=== PATIENT | female | born 1975 | race Caucasian/White ===

== ENCOUNTER → 2017-09-03 06:45 | Outpatient (CLI) | payer OTHER, SELFPAY ==
--- NOTE | 2017-09-03 | DI.MRI.S_ITS ---
PROCEDURE: MR LUMBAR SPINE WO CON INDICATIONS: low back pain TECHNIQUE: Noncontrast sagittal T1 spin echo and T2 fast echo, sagittal STIR, axial T1 and T2 fast spin echo through the lumbar spine. In cases with scoliosis, additional coronal T2 fast spin echo may be performed. COMPARISON: [facility], CR, L-SPINE 2-3 VIEWS, 02/05/2014, 9:51. [facility], , L-SPINE 2-3 VIEWS, 03/08/2013, 14:13. FINDINGS: Image quality: Excellent. Alignment and Curvature: There is normal bony alignment. Bone Marrow: Marrow is generally of normal overall signal but there is a L1 vertebral body marrow space structure that is elevated in T2 and STIR signal and suppressed in T1 signal, and is associated with low signal intensity vertically oriented striations equivalent to the appearance of the plain film imaging striations seen on the most recent available lung cervical spine plain film from January 2014 and also the earliest available comparison from February of 2013. The appearance has been previously described as likely due to a vertebral body atypical hemangioma and given its stability over time no additional followup is recommended. No acute vertebral body compression fractures. Spinal Cord: Conus medullaris terminates at the L1 level. Visualized cord demonstrates normal signal and size. Paraspinous Soft Tissues: No paravertebral masses. L1-L2: Normal appearance. L2-L3: Normal appearance. L3-L4: Normal appearance. L4-L5: Moderate degenerative disc disease, small posterior transverse disc bulge. There is disc height reduction and disc desiccation. Facet osteoarthritis is moderate to moderately severe and greater in the left than the right with moderate left and mild to moderate right foraminal stenosis and potential for asymmetric left greater than right L4 nerve root impingement. L5-S1: Moderately severe degenerative disc disease, posterior broad-based transverse disc bulge. Facet osteoarthritis is moderate bilaterally but does not produce foraminal stenosis. No spinal stenosis. IMPRESSION: 1. 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 This produces no mass effect, and has been present without change since February of 2013. No followup recommended. 2. The degenerative disc disease and disc height reduction present at L4-5 and L5-S1 has progressed over time, with reference to the plain film imaging from 2012. There is no associated spinal stenosis but foraminal stenosis is present greater on the left than the right at L4-5 with potential for asymmetric left greater than right L4 nerve root impingement. 3. A disc herniation is not found.. Dictated by: Quinton Renteria M.D. on 09/03/2017 at 13:45 Approved by: Quinton Renteria M.D. on 09/03/2017 at 14:23
== END ==
PROVIDERS: PCP Family Medicine; Visit Provider Family Medicine
DX: M54.5 Low back pain (principal); M51.36 Other intervertebral disc degeneration, lumbar region
CPT/HCPCS: 72148

== ENCOUNTER → 2020-06-06 08:59 | Outpatient (CLI) | payer OTHER, SELFPAY ==
[2020-06-06 09:51] LABS: COVID19 -Nasal RAPID Negative (Negative)
== END ==
PROVIDERS: PCP Family Medicine; Visit Provider Nurse Practitioner
DX: R19.7 Diarrhea, unspecified (principal); R42 Dizziness and giddiness; Z20.822 Contact with and (suspected) exposure to COVID-19
CPT/HCPCS: 87635

== ENCOUNTER → 2020-07-11 13:50 | Outpatient (CLI) | payer OTHER, SELFPAY ==
[2020-07-11] MEDS: COVID-19 VACC #1, MRNA(MOD) 100 MCG/0.5 ML VIAL IM (13:57)
== END ==
PROVIDERS: PCP Family Medicine; Visit Provider Internal Medicine
DX: Z23 Encounter for immunization (principal)
CPT/HCPCS: 0011A; 91301

== ENCOUNTER → 2020-07-23 07:13 | Outpatient (CLI) | payer OTHER, SELFPAY ==
[2020-07-23 07:53] LABS: Add Manual Diff / Slide Review NO; Basophils Absolute Auto 0 /uL (0-100); Basophils Percent Auto 0.2 % (0-2); Eosinophils Absolute Auto 200 /uL (0-450); Eosinophils Percent Auto 3.9 % (2-4); Hematocrit 40.1 % (36-46); Hemoglobin 13.4 g/dL (12.0-16.0); Lymphocytes Absolute Auto 1400 /uL (1100-4500); Lymphocytes Percent Auto 28.8 % (25-40); Mean Corpuscular HGB Conc 33.4 % (30-36); Mean Corpuscular Hemoglobin 29.8 PG (26-34); Mean Corpuscular Volume 89.3 fL (80-100); Monocytes Absolute Auto 500 /uL (0-900); Monocytes Percent Auto 9.4 % (3-14); Neutrophils Absolute Auto 2800 /uL (1500-7000); Neutrophils Percent Auto 57.7 % (50-75); Platelet Count 357 X10^3/uL (150-400); Red Blood Cell Count 4.49 X10^6/uL (4.0-5.2); Red Cell Distribution Width 12.7 % (11.6-14.8); White Blood Cell Count 4.9 X10^3/uL (4.5-11.0)
[2020-07-23 08:23] LABS: Blood Urea Nitrogen 14 mg/dL (7-17); Carbon Dioxide 28 mmol/L (22-32); Chloride 104 mmol/L (98-107); Cholesterol 176 mg/dL (140-199); Estimated Glomerular Filt Rate > 60.0 mL/min (>60); Glucose 86 mg/dL (70-100); HDL Cholesterol 66 mg/dL (40-60); HEMOLYSIS < 15 (0-50); LDL Cholesterol Calculated 99 mg/dL (<100); Potassium 4.2 mmol/L (3.4-5.1); Sodium 136 mmol/L (137-145); Triglycerides 56 mg/dL (35-150)
[2020-07-23 09:16] LABS: Vitamin D 25 Hydroxy (D3) 39.3 ng/mL (30.0-100.0)
[2020-07-23 09:23] LABS: Free T3, Triiodothyronine Free 4.01 pg/mL (2.77-5.27); Free T4, Direct Thyroxine 0.83 ng/dL (0.78-2.19)
== END ==
PROVIDERS: PCP Family Medicine; Referring Provider Family Medicine; Visit Provider Family Medicine
DX: Z13.21 Encounter for screening for nutritional disorder (principal); Z13.220 Encounter for screening for lipoid disorders; Z13.29 Encounter for screening for other suspected endocrine disorder
CPT/HCPCS: 36415; 80048; 80061; 82306; 84439; 84443; 84481; 85025

== ENCOUNTER → 2020-08-08 14:11 | Outpatient (CLI) | payer OTHER, SELFPAY ==
[2020-08-08] MEDS: COVID-19 VACC #2, MRNA(MOD) 100 MCG/0.5 ML VIAL IM (14:17)
== END ==
PROVIDERS: PCP Family Medicine; Visit Provider Internal Medicine
DX: Z23 Encounter for immunization (principal)
CPT/HCPCS: 0012A; 91301

== ENCOUNTER → 2021-06-16 07:43 | Outpatient (CLI) | payer OTHER, SELFPAY ==
[2021-06-16 08:43] LABS: Add Manual Diff / Slide Review NO; Basophils Absolute Auto 100 /uL (0-100); Basophils Percent Auto 1.7 % (0-2); Eosinophils Absolute Auto 200 /uL (0-450); Eosinophils Percent Auto 5.4 % (2-4); Hematocrit 37.5 % (36-46); Hemoglobin 12.5 g/dL (12.0-16.0); Lymphocytes Absolute Auto 1400 /uL (1100-4500); Lymphocytes Percent Auto 33.5 % (25-40); Mean Corpuscular HGB Conc 33.4 % (30-36); Mean Corpuscular Hemoglobin 30.1 PG (26-34); Mean Corpuscular Volume 90.1 fL (80-100); Monocytes Absolute Auto 400 /uL (0-900); Monocytes Percent Auto 10.2 % (3-14); Neutrophils Absolute Auto 2100 /uL (1500-7000); Neutrophils Percent Auto 49.2 % (50-75); Platelet Count 429 X10^3/uL (150-400); Red Blood Cell Count 4.16 X10^6/uL (4.0-5.2); Red Cell Distribution Width 13.7 % (11.6-14.8); White Blood Cell Count 4.3 X10^3/uL (4.5-11.0)
[2021-06-16 08:54] LABS: Alanine Aminotransferase 19 IU/L (<35); Albumin 4.3 g/dL (3.5-5.0); Albumin Globulin Ratio 1.4 (1.0-2.8); Alkaline Phosphatase 163 U/L (38-126); Aspartate Aminotransferase 26 IU/L (14-36); BUN Creatinine Ratio 23.5 (6-22); Bilirubin Total 0.8 mg/dL (0.2-1.3); Blood Urea Nitrogen 16 mg/dL (7-17); Calcium 8.8 mg/dL (8.4-10.2); Carbon Dioxide 27 mmol/L (22-32); Chloride 107 mmol/L (98-107); Cholesterol 196 mg/dL (140-199); Estimated Glomerular Filt Rate > 60.0 mL/min (>60); Glucose 78 mg/dL (70-100); HDL Cholesterol 73 mg/dL (40-60); HEMOLYSIS < 15 (0-50); LDL Cholesterol Calculated 114 mg/dL (<100); Potassium 3.8 mmol/L (3.4-5.1); Sodium 138 mmol/L (137-145); Total Protein 7.3 g/dL (6.3-8.2); Triglycerides 43 mg/dL (35-150)
[2021-06-16 09:11] LABS: Free T3, Triiodothyronine Free 3.35 pg/mL (2.77-5.27); Free T4, Direct Thyroxine 0.93 ng/dL (0.78-2.19)
[2021-06-16 09:25] LABS: Thyroid Stimulating Hormone 0.828 uIU/mL (0.47-4.68)
[2021-06-16 09:31] LABS: Vitamin D 25 Hydroxy (D3) 28.3 ng/mL (30.0-100.0)
[2021-06-16 09:43] LABS: Vitamin B12 > 1000 pg/mL (239-931)
== END ==
PROVIDERS: PCP Family Medicine; Referring Provider Family Medicine; Visit Provider Family Medicine
DX: F32.A Depression, unspecified (principal); Z13.21 Encounter for screening for nutritional disorder; Z13.220 Encounter for screening for lipoid disorders; Z13.29 Encounter for screening for other suspected endocrine disorder
CPT/HCPCS: 36415; 80053; 80061; 82306; 82607; 84439; 84443; 84481; 85025

== ENCOUNTER → 2021-06-19 07:53 | Outpatient (CLI) | payer OTHER, SELFPAY ==
--- NOTE | 2021-06-19 07:54 | DI.RAD.S_ITS ---
PROCEDURE: XR HIP W PEL IF DONE LT 2V INDICATIONS: left hip pain TECHNIQUE: AP pelvis with lateral view(s) of the left hip(s). COMPARISON: None. FINDINGS: Bones: No fractures or dislocations. Pelvic ring appears intact. No suspicious bony lesions. Mild bilateral hip osseous hypertrophy compatible with mild osteoarthritis. Soft tissues: The visualized bowel gas pattern is normal. No suspicious soft tissue calcifications. IMPRESSION: Mild bilateral hip osteoarthritis. Dictated by: Monica Alvarado MD, PhD on 06/19/2021 at 9:19 Approved by: Monica Alvarado MD, PhD on 06/19/2021 at 9:19
--- NOTE | 2021-06-19 07:54 | DI.RAD.S_ITS ---
PROCEDURE: XR LUMBAR SPINE 2-3V INDICATIONS: back pain TECHNIQUE: 3 views of the lumbar spine were acquired. COMPARISON: None. FINDINGS: Bones: 5 [id number] vertebrae are present. There is normal bony alignment. No vertebral body compression fractures. No suspicious bony lesions. Moderate L4-L5 and L5-S1 degenerative disc disease. Mild L3-L4 degenerative disc disease. Mild L3-L4, L4-L5 and L5-S1 facet arthropathy. Soft tissues: Overlying bowel gas pattern is normal. No suspicious soft tissue calcifications. IMPRESSION: 1. Multilevel degenerative disc disease. 2. Multilevel facet arthropathy. 3. No fracture. No acute osseous lesion. If symptoms and/or clinical suspicion for pathology persists, evaluation with MRI should be considered for further assessment. Dictated by: Monica Alvarado MD, PhD on 06/19/2021 at 9:18 Approved by: Monica Alvarado MD, PhD on 06/19/2021 at 9:18
== END ==
PROVIDERS: PCP Family Medicine; Referring Provider Family Medicine; Visit Provider Family Medicine
DX: M51.36 Other intervertebral disc degeneration, lumbar region (principal); M47.816 Spondylosis without myelopathy or radiculopathy, lumbar region; M16.0 Bilateral primary osteoarthritis of hip; M25.552 Pain in left hip; M54.50 Low back pain, unspecified; G89.29 Other chronic pain
CPT/HCPCS: 72100; 73502

== ENCOUNTER → 2022-12-02 08:51 | Outpatient (CLI) | payer OTHER, SELFPAY ==
--- NOTE | 2022-12-02 | DI.MG.S_ITS ---
BILATERAL DIGITAL DIAGNOSTIC MAMMOGRAM 3D/2D: 12/02/2022 CLINICAL: Left lump baseline. No prior exams were available for comparison. Both breasts are heterogeneously dense, which may obscure small masses (category c / 51-75% glandular tissue). There is a 1.2 cm oval equal density focal asymmetry with an obscured margin in the left breast at 4 o'clock middle depth. No other significant masses, calcifications, or other findings are seen in either breast. IMPRESSION: INCOMPLETE: NEEDS ADDITIONAL IMAGING EVALUATION The 1.2 cm oval equal density focal asymmetry in the left breast resembles a cyst, a lymph node, or a fibroadenoma and is indeterminate. An ultrasound is recommended for further evaluation and is scheduled to immediately follow this examination. There is no abnormality seen in the left axilla to correspond with the area of clinical concern and palpable abnormality indicated by BB marker, however, an ultrasound is recommended for further evaluation and is scheduled to immediately follow this examination. Based on the Tyrer Cuzick model (a risk assessment model) the patient's lifetime risk is 10.6% and her 10 year risk is 2.2%. According to the ACR, ACS, and NCCN guidelines, an annual breast MRI exam along with mammogram is recommended if the patient's lifetime risk is 20% or greater. This exam was interpreted at Station ID: [id number]. NOTE: For mammograms, a report in lay terms will be sent to the patient. Approximately 15% of breast malignancies will not be visualized mammographically. In the management of a palpable breast mass, a negative mammogram must not discourage biopsy of a clinically suspicious lesion. Electronically Signed By: Salvador Alves M.D. aty/:12/02/2022 12:03:49 ACR BI-RADS Category 0: Incomplete [id number]
--- NOTE | 2022-12-02 08:51 | DI.US.S_ITS ---
ULTRASOUND OF LEFT BREAST AND AXILLA: 12/02/2022 CLINICAL: Patient returns today to evaluate an asymmetry in the left breast and separate palpable lump. Comparison is made to exam dated: 12/02/2022 mammogram - [facility]. Color flow and real-time ultrasound of the left breast axilla were performed. Lo scale images of the real-time examination were reviewed. There is a 0.9 cm x 0.7 cm x 0.8 cm wider than tall oval mass with mild angular margins in the left breast at 4 o'clock middle depth 4 cm from the nipple. This oval mass is hypoechoic with no posterior acoustic shadowing or enhancement. This correlates with mammography findings. Color flow imaging demonstrates that there is vascularity present. There is also a 1.2 cm x 0.4 cm x 0.7cm oval, wider than tall, hypoechoic mass in close vicinity to the oval, irregularly marginated mass described above. This mass is approximately 1.0 cm away from the index mass and is noted at the 4 o'clock axis and 4 cm from the nipple. There is associated internal vascularity. No significant abnormalities were seen sonographically in the left axilla. IMPRESSION: SUSPICIOUS OF MALIGNANCY The 0.9 cm x 0.7 cm x 0.8 cm wider than tall oval mass in the left breast is suspicious of malignancy. An ultrasound guided biopsy is recommended. Adjacent oval hypoechoic 1.2cm mass at 4 o'clock is at at low suspicion for malignancy. An ultrasound guided biopsy is recommended. Given their close proximity to each other, both masses can be biopsied and submitted as a single specimen. There is no abnormality seen in the left axilla to correspond with the area of clinical concern and palpable abnormality indicated by BB marker in the left axilla, however, recommend clinical follow up for persistent or worsening symptoms, or development of any clinically suspicious findings. Findings and recommendations were discussed with the patient by Dr. Brian during today's examination. This exam was interpreted at Station ID: [id number]. Electronically Signed By: Salvador Alves M.D. aty/:12/03/2022 12:45:55 letter sent: Biopsy Required Ultrasound BI-RADS: 4 Suspicious for malignancy
== END ==
PROVIDERS: PCP Family Medicine; Referring Provider Family Medicine; Visit Provider Family Medicine
DX: R92.8 Other abnormal and inconclusive findings on diagnostic imaging of breast (principal); N63.23 Unspecified lump in the left breast, lower outer quadrant
CPT/HCPCS: 76642; 77066; G0279

== ENCOUNTER → 2022-12-08 | Outpatient (CLI) | payer OTHER, SELFPAY ==
--- NOTE | 2022-12-08 | DI.MG.S_ITS ---
UNILATERAL LEFT DIGITAL DIAGNOSTIC MAMMOGRAM 3D/2D POST-EXCISIONAL BIOPSY: 12/08/2022 CLINICAL: Left breast post clip. Comparison is made to exams dated: 12/02/2022 mammogram, 12/02/2022 ultrasound, and 12/08/2022 ultrasound biopsy - [facility]. The left breast is heterogeneously dense, which may obscure small masses (category c / 51-75% glandular tissue). There is a marker clip in the appropriate position in the left breast at 4 o'clock middle depth at the biopsy site. There also is a marker clip in the appropriate position in the left breast at 4 o'clock middle depth at the biopsy site. IMPRESSION: POST PROCEDURE MAMMOGRAM FOR MARKER PLACEMENT There was a successful vision marker clip placement in the left breast at 4 o'clock middle depth. There was a successful celero marker clip placement in the left breast at 4 o'clock middle depth. This exam was interpreted at Station ID: [id number]. Electronically Signed By: Juan Alberto Arnold M.D. slc/:12/08/2022 16:59:35 ACR BI-RADS Category Post-procedure mammogram for marker placement
--- NOTE | 2022-12-08 | PATH_ITS ---
[facility] Accession Number: [id number] No. of containers..01 Tissue . 01 Material submitted: . breast - LEFT BREAST MASS . 01 Diagnosis: A. Designated As Left Breast Mass, Biopsy: Breast tissue with fragments of cyst wall, adenosis, microcysts, and columnar cell change/columnar cell hyperplasia with focal usual ductal hyperplasia, focal pseudoangiomatous stromal hyperplasia, and chronic and histiocytic inflammation possibly secondary to prior duct rupture. Negative for atypia, carcinoma in situ and malignancy. MRV 12/14/2022 1454 Local . 01 Electronically signed: . Natividad Phillips MD, Pathologist NPI- [id number] . 01 Gross description: . The specimen is received in formalin labeled with the patient's name, , and LT breast consists of multiple yellow-brownlee soft tissue fragments admixed with hemorrhagic material aggregating to 3.8 x 2.0 x 0.2 cm. Filtered, inked orange, and submitted entirely in cassettes A1-A2. . The specimen was removed on at 1526. Time in formalin not provided. Cold ischemic time cannot be calculated. Total fixation time is approximately 51 hours. ([id number]) /MRV 12/10/2022 1641 Local . 01 Pathologist provided ICD-10: N60.32 . 01 CPT . 874945 Specimen Comment: A courtesy copy of this report has been sent to [facility] Performed at: 01 [facility] [address] [place] [id number] MD Chase Mckenzie MD Phone: [phone]
--- NOTE | 2022-12-08 14:18 | DI.US.S_ITS ---
MULTIPLE ULTRASOUND GUIDED BIOPSIES LEFT BREAST USING VACUUM DEVICE WITH MARKING DEVICES INSERTED AND POST DIGITAL MAMMOGRAPHIC IMAGIN12/08/2022 CLINICAL: Left breast 2 adjacent masses, treated as 1 mass. PATIENT CONSENT: Risks (minor bleeding, infection, vasovagal reaction and repeat procedure), benefits and alternatives were explained to the patient and written informed consent was obtained. Correlation is made to exams dated: 12/02/2022 ultrasound, 12/02/2022 mammogram, and 12/08/2022 mammogram - [facility]. An ultrasound guided biopsy using real-time ultrasound was performed for the 1.2 cm x 0.7 cm x 0.4 cm circumscribed oval mass located in the left breast at 4 o'clock posterior depth 4 cm from the nipple. This was described on the previous ultrasound report. The skin was prepped in the usual manner. Local anesthetic was administered to the access site. A skin len was made in the breast. The abnormality was approached from the lateral aspect. A 13 gauge biopsy needle was placed adjacent to the abnormality under ultrasound guidance. Once the needle was documented to be in the correct location, four cores were obtained using the Mammotome biopsy system. The patient received additional local anesthetic during the procedure. A celero clip was inserted into the biopsy cavity. A skin adhesive and a sterile dressing were applied to the access site. Post procedure digital mammographic imaging demonstrates the location device at the targeted area. The specimens were sent to the laboratory for pathological analysis. A second ultrasound guided biopsy using real-time ultrasound was performed for the 0.9 cm x 0.8 cm x 0.7 cm indistinct oval mass located in the left breast at 4 o'clock middle depth 4 cm from the nipple. This was described on the previous ultrasound report. The skin was prepped in the usual manner. Local anesthetic was administered to the access site. A skin len was made in the breast. The abnormality was approached from the lateral aspect. A 13 gauge biopsy needle was placed adjacent to the abnormality under ultrasound guidance. Once the needle was documented to be in the correct location, five cores were obtained using the Mammotome biopsy system. The patient received additional local anesthetic during the procedure. A vision clip was inserted into the biopsy cavity. A skin adhesive and a sterile dressing were applied to the access site. Post procedure digital mammographic imaging demonstrates the location device at the targeted area. The specimens were sent to the laboratory for pathological analysis. IMPRESSION: ULTRASOUND GUIDED BIOPSY BENIGN Ultrasound guided biopsy of the 1.2 cm x 0.7 cm x 0.4 cm mass in the left breast at 4 o'clock, posterior depth 4 cm from the nipple was successful. Ultrasound guided biopsy of the 0.9 cm x 0.8 cm x 0.7 cm mass in the left breast at 4 o'clock middle depth 4 cm from the nipple was successful. Pathology of masses was benign (adenosis, columnar cell hyperplasia, usual ductal hyperplasia, focal pseudoangiomatous stromal hyperplasia, and chronic and histiocytic inflammation possibly secondary to prior duct rupture). Pathology results are concordant with imaging findings. Recommend return to annual mammogram screening (due November 2023). This exam was interpreted at Station ID: [id number]. Juan Alberto Guillory M.D. [facility],esb/:12/15/2022 18:53:00
== END ==
PROVIDERS: PCP Family Medicine; Referring Provider Family Medicine; Visit Provider Family Medicine
DX: N60.22 Fibroadenosis of left breast (principal); N62 Hypertrophy of breast; N61.0 Mastitis without abscess
CPT/HCPCS: 19083; 77065

== ENCOUNTER → 2022-12-17 07:17 | Outpatient (CLI) | payer OTHER, SELFPAY ==
[2022-12-17 08:22] LABS: Add Manual Diff / Slide Review NO; Basophils Absolute Auto 100 /uL (0-100); Basophils Percent Auto 1.7 % (0-2); Eosinophils Absolute Auto 300 /uL (0-450); Eosinophils Percent Auto 6.3 % (2-4); Hematocrit 43.8 % (36-46); Hemoglobin 14.6 g/dL (12.0-16.0); Lymphocytes Absolute Auto 1400 /uL (1100-4500); Lymphocytes Percent Auto 29.2 % (25-40); Mean Corpuscular HGB Conc 33.4 % (30-36); Mean Corpuscular Volume 89.8 fL (80-100); Monocytes Absolute Auto 400 /uL (0-900); Monocytes Percent Auto 9.5 % (3-14); Neutrophils Absolute Auto 2500 /uL (1500-7000); Neutrophils Percent Auto 53.3 % (50-75); Platelet Count 385 X10^3/uL (150-400); Red Blood Cell Count 4.88 X10^6/uL (4.0-5.2); Red Cell Distribution Width 13.3 % (11.6-14.8); White Blood Cell Count 4.7 X10^3/uL (4.5-11.0)
[2022-12-17 08:44] LABS: Alanine Aminotransferase 17 IU/L (<35); Albumin 4.2 g/dL (3.5-5.0); Albumin Globulin Ratio 1.6 (1.0-2.8); Alkaline Phosphatase 155 U/L (38-126); Aspartate Aminotransferase 22 IU/L (14-36); BUN Creatinine Ratio 19.4 (6-22); Bilirubin Total 0.9 mg/dL (0.2-1.3); Blood Urea Nitrogen 13 mg/dL (7-17); Calcium 9.5 mg/dL (8.4-10.2); Carbon Dioxide 26 mmol/L (22-32); Chloride 104 mmol/L (98-107); Estimated Glomerular Filt Rate > 60 mL/min (>60); Gamma Glutamyl Transpeptidase 24 U/L (12-43); Globulin 2.7 g/dL (1.7-4.1); Glucose 79 mg/dL (70-100); HEMOLYSIS < 15 (0-50); Potassium 4.1 mmol/L (3.4-5.1); Sodium 137 mmol/L (137-145); Total Protein 6.9 g/dL (6.3-8.2)
== END ==
PROVIDERS: PCP Family Medicine; Referring Provider Physician Assistant; Visit Provider Physician Assistant
DX: D72.819 Decreased white blood cell count, unspecified (principal); R74.8 Abnormal levels of other serum enzymes
CPT/HCPCS: 36415; 80053; 82977; 85025

== ENCOUNTER → 2023-11-24 14:51 | Outpatient (CLI) | payer OTHER, SELFPAY ==
[2023-11-24 17:20] LABS: Alanine Aminotransferase 18 IU/L (<35); Albumin 4.4 g/dL (3.5-5.0); Albumin Globulin Ratio 1.7 (1.0-2.8); Alkaline Phosphatase 156 U/L (38-126); Aspartate Aminotransferase 26 IU/L (14-36); BUN Creatinine Ratio 25.6 (6-22); Bilirubin Total 0.4 mg/dL (0.2-1.3); Blood Urea Nitrogen 20 mg/dL (7-17); Calcium 9.4 mg/dL (8.4-10.2); Carbon Dioxide 24 mmol/L (22-32); Chloride 105 mmol/L (98-107); Estimated Glomerular Filt Rate > 60 mL/min (>60); Gamma Glutamyl Transpeptidase 18 U/L (12-43); Globulin 2.6 g/dL (1.7-4.1); Glucose 84 mg/dL (70-100); HEMOLYSIS < 15 (0-50); Potassium 4.2 mmol/L (3.4-5.1); Sodium 139 mmol/L (137-145)
== END ==
PROVIDERS: PCP Family Medicine; Referring Provider Physician Assistant; Visit Provider Physician Assistant
DX: R74.8 Abnormal levels of other serum enzymes (principal)
CPT/HCPCS: 80053; 82977

== ENCOUNTER → 2023-12-13 13:00 | Outpatient (CLI) | payer OTHER, SELFPAY ==
[2023-12-13 15:26] LABS: Cholesterol 195 mg/dL (140-199); HDL Cholesterol 68 mg/dL (40-60); LDL Cholesterol Calculated 111 mg/dL (<100); Triglycerides 81 mg/dL (35-150)
[2023-12-13 16:08] LABS: TSH w/ Reflex to FT4 0.56 uIU/mL (0.47-4.68)
== END ==
PROVIDERS: PCP Family Medicine; Referring Provider Family Medicine; Visit Provider Family Medicine
DX: E78.00 Pure hypercholesterolemia, unspecified (principal); Z83.49 Family history of other endocrine, nutritional and metabolic diseases; R53.83 Other fatigue
CPT/HCPCS: 36415; 80061; 84443